=== PATIENT | female | born 1995 | race Caucasian/White ===

== ENCOUNTER 2016-12-01 16:31 | Emergency (ER) | payer OTHER ==
[2016-12-01 18:27] LABS: Basophils % (Auto) 0.2 % (0.0-1.8); Eosinophils % (Auto) 0.7 % (0.0-4.3); Hematocrit 35.9 % (30.3-42.9); Hemoglobin 11.8 gm/dl (10.1-14.3); Mean Corpuscular HGB Conc 33 % (30-34); Mean Corpuscular Volume 77 fl (79-97); Platelet Count 229 K/mm3 (140-440); Red Blood Count 4.69 M/mm3 (3.65-5.03); Red Cell Distribution Width 17.4 % (13.2-15.2); White Blood Count 14.8 K/mm3 (4.5-11.0)
[2016-12-01 18:39] LABS: Mean Corpuscular Hemoglobin 25 pg (28-32)
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
--- NOTE | 2016-12-01 21:15 | Ultrasound Report ---
FINAL REPORT PROCEDURE: US OB TRANSVAGINAL TECHNIQUE: Real-time transabdominal and transvaginal sonography of the uterus, placenta, amniotic fluid, adnexa, and fetus was performed with image documentation. Measurements were obtained to determine age/size. M-mode Doppler was used to document heartbeat. CPT 09345 and 50108 HISTORY: preg/vagbleeding/pain COMPARISON: No prior studies are available for comparison. FINDINGS: ADDITIONAL GESTATION: None. Single live intrauterine is seen with crown-rump length 2.8 millimeters corresponding to 9 weeks 5 days gestational age. Mean sac diameter is 6 millimeters corresponding to 12 weeks 1 day gestational age. heart rate is 173 beats per minute. Right ovary is not seen due to bowel gas. Left ovary measures 2.9 x 1.6 x 2.1 cm. No free pelvic fluid is seen. IMPRESSION: 1. Single live intrauterine gestation at approximately 9 weeks 5 days. 2. Complete anatomic survey at 18-20 weeks suggested.
--- NOTE | 2016-12-01 21:17 | Ultrasound Report ---
FINAL REPORT PROCEDURE: US OB \T\lt; = 14 WEEKS FETUS TECHNIQUE: Real-time transabdominal and transvaginal sonography of the uterus, placenta, amniotic fluid, adnexa, and fetus was performed with image documentation. Measurements were obtained to determine age/size. M-mode Doppler was used to document heartbeat. CPT 76758 and 11873 HISTORY: preg/vagbleeding/pain COMPARISON: No prior studies are available for comparison. FINDINGS: ADDITIONAL GESTATION: None. Single live intrauterine is seen with crown-rump length 2.8 millimeters corresponding to 9 weeks 5 days gestational age. Mean sac diameter is 6 millimeters corresponding to 12 weeks 1 day gestational age. heart rate is 173 beats per minute. Right ovary is not seen due to bowel gas. Left ovary measures 2.9 x 1.6 x 2.1 cm. No free pelvic fluid is seen. IMPRESSION: 1. Single live intrauterine gestation at approximately 9 weeks 5 days 2. Complete anatomic survey at 18-20 weeks suggested.
[2016-12-01 21:41] VITALS: BP 122/75
== END 2016-12-01 21:44 | disposition home or self-care (01) ==
LOC: ED 16:31
DX: O26.891 Other specified pregnancy related conditions, first trimester (principal); R10.30 Lower abdominal pain, unspecified; Z3A.09 9 weeks gestation of pregnancy; V89.2XXA Person injured in unspecified motor-vehicle accident, traffic, initial encounter; Y93.89 Activity, other specified; Y99.8 Other external cause status; Y92.89 Other specified places as the place of occurrence of the external cause
CPT/HCPCS: 36415; 76801; 76817; 84702; 85025; 86850; 86900; 86901